=== PATIENT | female | born 1940 | race African-American/Black ===

== ENCOUNTER → 2020-12-18 | Outpatient (CLI) | payer BC, MEDICARE ==
[~2020-12-18] MED LIST: ALBUTEROL (0.083%) 2.5MG/3ML NEB ONE; AZOPT EACHEYE; CIPR-263 PO; COLC0.6T66 PO; FURO-151 PO; LTMX5 EACHEYE; OLME40TA11 PO; POTA10TA11 PO; PRAV40TA58 PO; SERT25TA PO; SPIR25TA6 PO; THEOPHYLLINE PO; TIOT18CA3 INH; [UNRECOGNIZED DRUG - OTHER] EACHEYE; l
[2020-12-18 11:50] LABS: BG BASE EXCESS 1.5 mmol/L (-2.0-2.0); BG CARBOXYHEMOGLOBIN 1.1 % (0.5-1.5); BG DEOXYHEMOGLOBIN 4.2 % (0.0-5.0); BG FRACTION INSPIRED OXYGEN 21; BG HCO3 ACT 26.5 mmol/L (22.0-26.0); BG METHEMOGLOBIN 0.3 % (0.0-1.5); BG OXYGEN SATURATION 95.7 % (92.0-98.5); BG OXYHEMOGLOBIN 94.4 % (94.0-97.0); BG PH 7.407 (7.350-7.450); BG PO2 80.5 mmHg (75.0-100.0); BG SAMPLE SITE RIGHT RADIAL; BG VENT MODE ROOM AIR
== END | disposition home or self-care (01) ==
LOC: PF 10:14
PROVIDERS: ATTEND Internal Medicine Pulmonary Disease
DX: J44.9 Chronic obstructive pulmonary disease, unspecified (principal); J96.90 Respiratory failure, unspecified, unspecified whether with hypoxia or hypercapnia; Z20.822 Contact with and (suspected) exposure to COVID-19; Z79.899 Other long term (current) drug therapy
CPT/HCPCS: 36600; 82375; 82805; 87426; 94060; 94727; 94729